=== PATIENT | male | born 1960 | race Caucasian/White ===

== ENCOUNTER 2017-09-25 18:29 | Inpatient (IN) | payer BC ==
[2017-09-25] MEDS ORDERED: ACETAMINOPHEN 325 MG TAB PO (21:30)
[2017-09-25] MEDS ORDERED: MAGNESIUM HYDROXIDE 30ML CUP PO (21:30)
[2017-09-25] MEDS ORDERED: NACL 0.9% 3 ML SYG IV (21:30)
[2017-09-25] MEDS ORDERED: ONDANSETRON 4 MG INJ IV (21:30)
[2017-09-25] MEDS ORDERED: DOCUSATE SODIUM 100 MG CAP PO (21:30)
[2017-09-26] MEDS ORDERED: MECLIZINE 12.5 MG TAB PO (02:00)
[2017-09-26] MEDS ORDERED: DEXTROSE 50% 50 ML SYRINGE IV ×2 (03:00)
[2017-09-26] MEDS ORDERED: GLUCOSE GEL 15 GRAM TUBE BUCCAL (03:00)
[2017-09-26] MEDS ORDERED: GLUCOSE GEL 15 GRAM TUBE PO ×2 (03:00)
[2017-09-26] MEDS ORDERED: GLUCAGON 1 MG INJ IM (03:00)
[2017-09-26 05:32] LABS: ADD MAN DIFF? NO
[2017-09-26 05:35] LABS: ABNORMAL IP MESSAGE 1; BASOPHILS % 0.6 % (0.0-2.0); EOSINOPHILS # 0.6 10^3/ul (0.0-0.5); EOSINOPHILS % 16.4 % (0.0-7.0); HEMATOCRIT 28.3 % (42.0-52.0); HEMOGLOBIN 9.7 g/dl (14.0-18.0); LYMPHOCYTES # 0.6 10^3/ul (0.8-2.9); LYMPHOCYTES % 15.8 % (15.0-51.0); MEAN CORPUSCULAR HEMOGLOBIN 31.1 pg (29.0-33.0); MEAN CORPUSCULAR HGB CONC 34.3 g/dl (32.0-37.0); MEAN CORPUSCULAR VOLUME 90.7 fl (82.0-101.0); MONOCYTE # 0.3 10^3/ul (0.3-0.9); MONOCYTES % 9.4 % (0.0-11.0); NEUTROPHIL # 2.1 10^3/ul (1.6-7.5); NEUTROPHILS % 57.5 % (39.0-77.0); PLATELET COUNT 34 10^3/UL (140-415); POSITIVE DIFF @See below; RED BLOOD COUNT 3.12 10^6/ul (4.70-6.10); RED CELL DISTRIBUTION WIDTH 14.1 % (11.5-14.5)
[2017-09-26 05:35] LABS: WHITE BLOOD COUNT 3.6 10^3/ul (4.8-10.8)
[2017-09-26] MEDS: PANTOPRAZOLE 40 MG INJ IV (05:59)
[2017-09-26] MEDS: LEVOTHYROXINE 25 MCG TAB PO (06:00)
[2017-09-26] MEDS ORDERED: PANTOPRAZOLE 40 MG INJ IV (06:00)
[2017-09-26 06:05] LABS: AMMONIA 51 umol/l (9-30)
[2017-09-26 06:49] LABS: ALANINE AMINOTRANSFERASE 52 IU/L (13-69); ALBUMIN 3.1 g/dl (3.3-4.9); ALBUMIN/GLOBULIN RATIO 0.77; ALKALINE PHOSPHATASE 142 IU/L (42-121); ANION GAP 16 (8-16); ASPARTATE AMINO TRANSFERASE 44 IU/L (15-46); BILIRUBIN,INDIRECT 1.4 mg/dl (0-1.1); BILIRUBIN,TOTAL 1.4 mg/dl (0.2-1.3); BLOOD UREA NITROGEN 18 mg/dl (7-20); CALCIUM 8.3 mg/dl (8.4-10.2); CARBON DIOXIDE 23 mmol/L (21-31); CHLORIDE 106 mmol/L (97-110); GLUCOSE 297 mg/dl (70-220); POTASSIUM 4.1 mmol/L (3.5-5.1); SODIUM 141 mmol/L (135-144); TOTAL PROTEIN 7.1 g/dl (6.1-8.1)
[2017-09-26] MEDS: FERROUS FUMARATE (SR) TAB PO (08:33)
[2017-09-26] MEDS: GABAPENTIN 300 MG CAP PO ×3 (08:33→21:59)
[2017-09-26] MEDS: LORATADINE 10 MG TAB PO (08:33)
[2017-09-26] MEDS: PROPRANOLOL 20 MG TAB PO ×2 (08:34→21:00)
[2017-09-26] MEDS: FUROSEMIDE 20 MG TAB PO (08:34)
[2017-09-26] MEDS: SPIRONOLACTONE 50 MG TAB PO (08:35)
[2017-09-26] MEDS: BENAZEPRIL 5 MG TAB PO (08:35)
[2017-09-26] MEDS: Insulin NOVOLOG SS MILD Algorithm (SS with meals and bedtime) SC ×4 (08:37→21:00)
[2017-09-26] MEDS ORDERED: DOCUSATE SODIUM 100 MG CAP PO (09:00)
[2017-09-26 09:07] LABS: HEMOGLOBIN A1C 10.7 % (0-5.9)
[2017-09-26] MEDS: INSULIN ASPART [NOVOLOG] 3 ML PEN SC ×4 (12:58→17:38)
[2017-09-26] MEDS: ACCU-CHEK XX ×2 (13:45→20:06)
[2017-09-26] MEDS: LACTULOSE 30ML CUP PO ×2 (16:45→19:52)
[2017-09-26] MEDS: ALBUMIN HUMAN 25% 100 ML IV (19:52)
[2017-09-26] MEDS: INSULIN GLARGINE [LANtus] 3 ML PEN SC (20:30)
[2017-09-27] MEDS ORDERED: ACCUCHECK AT 2AM (Patients on SS coverage) XX (02:00)
[2017-09-27] MEDS: LACTULOSE 30ML CUP PO ×4 (02:44→17:42)
[2017-09-27] MEDS: ACCU-CHEK XX ×4 (02:49→20:05)
[2017-09-27] MEDS: PANTOPRAZOLE 40 MG INJ IV (05:55)
[2017-09-27] MEDS: LEVOTHYROXINE 25 MCG TAB PO (05:55)
[2017-09-27 07:14] LABS: ANION GAP 15 (8-16); BLOOD UREA NITROGEN 21 mg/dl (7-20); CALCIUM 8.4 mg/dl (8.4-10.2); CARBON DIOXIDE 24 mmol/L (21-31); CHLORIDE 104 mmol/L (97-110); CREATININE 0.86 mg/dl (0.61-1.24); GLUCOSE 253 mg/dl (70-220); SODIUM 139 mmol/L (135-144)
[2017-09-27] MEDS: Insulin NOVOLOG SS MILD Algorithm (SS with meals and bedtime) SC ×4 (08:06→21:39)
[2017-09-27] MEDS: INSULIN ASPART [NOVOLOG] 3 ML PEN SC ×3 (08:08→17:37)
[2017-09-27] MEDS: FUROSEMIDE 20 MG TAB PO (09:21)
[2017-09-27] MEDS: LORATADINE 10 MG TAB PO (09:21)
[2017-09-27] MEDS: BENAZEPRIL 5 MG TAB PO (09:21)
[2017-09-27] MEDS: FERROUS FUMARATE (SR) TAB PO (09:21)
[2017-09-27] MEDS: GABAPENTIN 300 MG CAP PO ×3 (09:22→21:10)
[2017-09-27] MEDS: PROPRANOLOL 20 MG TAB PO ×2 (09:22→21:10)
[2017-09-27] MEDS: SPIRONOLACTONE 50 MG TAB PO (09:22)
[2017-09-27] MEDS: DULOXETINE 30 MG CAP DR PO (17:36)
[2017-09-27] MEDS ORDERED: INSULIN GLARGINE [LANtus] 3 ML PEN SC (20:00)
[2017-09-27] MEDS: INSULIN GLARGINE [LANtus] 3 ML PEN SC (21:41)
[2017-09-28] MEDS: LACTULOSE 30ML CUP PO ×3 (00:14→12:07)
[2017-09-28] MEDS: ACCU-CHEK XX ×3 (01:52→14:22)
[2017-09-28] MEDS: PANTOPRAZOLE 40 MG INJ IV (05:16)
[2017-09-28] MEDS: LEVOTHYROXINE 25 MCG TAB PO (05:18)
[2017-09-28 05:39] LABS: ADD MAN DIFF? NO
[2017-09-28 05:43] LABS: WHITE BLOOD COUNT 3.2 10^3/ul (4.8-10.8)
[2017-09-28 05:43] LABS: ABNORMAL IP MESSAGE 1; BASOPHILS % 0.9 % (0.0-2.0); EOSINOPHILS # 0.7 10^3/ul (0.0-0.5); EOSINOPHILS % 20.7 % (0.0-7.0); HEMATOCRIT 27.9 % (42.0-52.0); HEMOGLOBIN 9.7 g/dl (14.0-18.0); LYMPHOCYTES # 0.6 10^3/ul (0.8-2.9); LYMPHOCYTES % 18.8 % (15.0-51.0); MEAN CORPUSCULAR HEMOGLOBIN 31.4 pg (29.0-33.0); MEAN CORPUSCULAR HGB CONC 34.8 g/dl (32.0-37.0); MEAN CORPUSCULAR VOLUME 90.3 fl (82.0-101.0); MEAN PLATELET VOLUME 11.8 fl (7.4-10.4); MONOCYTE # 0.4 10^3/ul (0.3-0.9); MONOCYTES % 11.7 % (0.0-11.0); NEUTROPHIL # 1.5 10^3/ul (1.6-7.5); NEUTROPHILS % 47.6 % (39.0-77.0); PLATELET COUNT 34 10^3/UL (140-415); POSITIVE DIFF @See below; RED BLOOD COUNT 3.09 10^6/ul (4.70-6.10); RED CELL DISTRIBUTION WIDTH 14.5 % (11.5-14.5)
[2017-09-28 06:32] LABS: ANION GAP 16 (8-16); BLOOD UREA NITROGEN 19 mg/dl (7-20); CALCIUM 8.2 mg/dl (8.4-10.2); CARBON DIOXIDE 21 mmol/L (21-31); CHLORIDE 104 mmol/L (97-110); CREATININE 0.78 mg/dl (0.61-1.24); GLUCOSE 248 mg/dl (70-220); SODIUM 137 mmol/L (135-144)
[2017-09-28] MEDS: GABAPENTIN 300 MG CAP PO ×2 (08:11→12:07)
[2017-09-28] MEDS: PROPRANOLOL 20 MG TAB PO (08:11)
[2017-09-28] MEDS: LORATADINE 10 MG TAB PO (08:11)
[2017-09-28] MEDS: FUROSEMIDE 20 MG TAB PO (08:11)
[2017-09-28] MEDS: SPIRONOLACTONE 50 MG TAB PO (08:11)
[2017-09-28] MEDS: FERROUS FUMARATE (SR) TAB PO (08:12)
[2017-09-28] MEDS: DULOXETINE 30 MG CAP DR PO (08:12)
[2017-09-28] MEDS: BENAZEPRIL 5 MG TAB PO (08:12)
[2017-09-28] MEDS: INSULIN ASPART [NOVOLOG] 3 ML PEN SC ×2 (08:13→12:08)
[2017-09-28] MEDS: Insulin NOVOLOG SS MILD Algorithm (SS with meals and bedtime) SC ×2 (08:14→12:08)
[2017-09-28] MEDS: LINAGLIPTIN 5 MG TABLET PO (13:09)
[2017-09-28] MEDS ORDERED: INSULIN GLARGINE [LANtus] 3 ML PEN SC (20:00)
[2017-09-29] MEDS ORDERED: PANTOPRAZOLE (EC) 40 MG TAB PO (06:00)
[2017-09-29] MEDS ORDERED: INFLUENZA VIRUS VACCINE 0.5 ML SYG IM* (09:00)
== END 2017-09-28 17:18 | disposition home or self-care (01) | DRG 638 ==
LOC: PP2 09-27 15:40 → MS3 18:29 → PP2 09-27 16:48
PROVIDERS: Internal Medicine Nephrology
DX: E11.65 Type 2 diabetes mellitus with hyperglycemia (principal); E87.1 Hypo-osmolality and hyponatremia; D61.818 Other pancytopenia; K76.6 Portal hypertension; E11.42 Type 2 diabetes mellitus with diabetic polyneuropathy; D50.9 Iron deficiency anemia, unspecified; I10 Essential (primary) hypertension; K70.31 Alcoholic cirrhosis of liver with ascites
CPT/HCPCS: 80048; 80053; 82140; 82962; 83036; 85025

== ENCOUNTER 2017-10-13 11:21 | Emergency (ER) | payer BC ==
[2017-10-13 13:20] LABS: ADD MAN DIFF? NO
[2017-10-13 13:21] LABS: ABNORMAL IP MESSAGE 1; BASOPHILS % 0.6 % (0.0-2.0); EOSINOPHILS # 0.3 10^3/ul (0.0-0.5); EOSINOPHILS % 6.5 % (0.0-7.0); HEMATOCRIT 32.1 % (42.0-52.0); LYMPHOCYTES # 0.5 10^3/ul (0.8-2.9); LYMPHOCYTES % 9.4 % (15.0-51.0); MEAN CORPUSCULAR HEMOGLOBIN 30.5 pg (29.0-33.0); MEAN CORPUSCULAR HGB CONC 34.3 g/dl (32.0-37.0); MEAN CORPUSCULAR VOLUME 88.9 fl (82.0-101.0); MEAN PLATELET VOLUME 9.9 fl (7.4-10.4); MONOCYTE # 0.4 10^3/ul (0.3-0.9); MONOCYTES % 8.2 % (0.0-11.0); NEUTROPHIL # 3.9 10^3/ul (1.6-7.5); NEUTROPHILS % 75.1 % (39.0-77.0); PLATELET COUNT 60 10^3/UL (140-415); POSITIVE DIFF @See below; RED BLOOD COUNT 3.61 10^6/ul (4.70-6.10); RED CELL DISTRIBUTION WIDTH 13.6 % (11.5-14.5)
[2017-10-13 13:21] LABS: WHITE BLOOD COUNT 5.2 10^3/ul (4.8-10.8)
[2017-10-13 13:44] LABS: ALANINE AMINOTRANSFERASE 58 IU/L (13-69); ALBUMIN 3.5 g/dl (3.3-4.9); ALBUMIN/GLOBULIN RATIO 0.74; ALKALINE PHOSPHATASE 281 IU/L (42-121); ANION GAP 16 (8-16); ASPARTATE AMINO TRANSFERASE 45 IU/L (15-46); BILIRUBIN,INDIRECT 1.2 mg/dl (0-1.1); BILIRUBIN,TOTAL 1.2 mg/dl (0.2-1.3); BLOOD UREA NITROGEN 24 mg/dl (7-20); CALCIUM 9.1 mg/dl (8.4-10.2); CARBON DIOXIDE 20 mmol/L (21-31); CHLORIDE 105 mmol/L (97-110); CREATININE 0.88 mg/dl (0.61-1.24); GLUCOSE 234 mg/dl (70-220); LIPASE 91 U/L (23-300); POTASSIUM 5.3 mmol/L (3.5-5.1); SODIUM 136 mmol/L (135-144); TOTAL PROTEIN 8.2 g/dl (6.1-8.1)
[2017-10-13 13:50] LABS: INR 1.25; PROTIME 15.9 Sec (11.9-14.9); PT RATIO 1.2
[2017-10-13 13:53] LABS: TROPONIN-I < 0.012 ng/ml (0.00-0.12)
[2017-10-13] MEDS: ONDANSETRON 4 MG INJ IV (14:16)
[2017-10-13] MEDS: IBUPROFEN 600 MG TAB PO (14:16)
[2017-10-13] MEDS: SOD CHLORIDE 0.9% 1,000 ML IV (14:17)
== END 2017-10-13 15:20 | disposition home or self-care (01) ==
LOC: E/R 11:21
DX: J00 Acute nasopharyngitis [common cold] (principal); K70.30 Alcoholic cirrhosis of liver without ascites; E86.0 Dehydration; I10 Essential (primary) hypertension; E11.9 Type 2 diabetes mellitus without complications; E03.9 Hypothyroidism, unspecified; Z79.4 Long term (current) use of insulin
CPT/HCPCS: 36415; 71045; 80053; 83690; 84484; 85025; 85610; 87400; 93005; 96374; 99285-25